=== PATIENT | female | born 1990 | race Two or more races ===

== ENCOUNTER 2021-12-12 12:00 | Inpatient (IN) | payer BC, OTHER ==
[2021-12-12] MEDS ORDERED: ELECTROLYTE-148 SOLN 1,000 ML IV SCH (12:20)
[2021-12-12] MEDS ORDERED: MAGNESIUM 4GM/H20 - 4 GM/100 ML IVPB IVPB ONE (12:30)
[2021-12-12] MEDS ORDERED: BETAMET ACET/BETAMET NA PH 30 MG/5 ML VIAL IM ONE (12:40)
[2021-12-12] MEDS ORDERED: MAGNESIUM SULFATE 20GM/500ML - 20 GM/500 ML INFUS.BAG IVPB ONE (12:59)
[2021-12-12] MEDS ORDERED: AMPICILLIN - 2 GM in SODIUM CHLORIDE 100 ML IVPB ONE (13:12)
[2021-12-12 13:15] LABS: BASO % 0.4 % (0-2.0); EOS % 0.8 % (0-4.5); HEMATOCRIT 37.6 % (32.4-45.2); HEMOGLOBIN 12.5 GM/dL (10.7-15.3); LYMPH % 18.5 % (8-40); MCH 27.6 pg (25.7-33.7); MCHC 33.2 g/dl (32.0-36.0); MEAN CELL VOLUME 83.3 fl (80-96); MEAN PLT VOLUME 8.8 fl (7.5-11.1); MONO % 8.9 % (3.8-10.2); NEUT % 71.4 % (42.8-82.8); PLATELET COUNT 244 10^3/uL (134-434); RBC 4.51 M/mm3 (3.60-5.2); RDW 14.3 % (11.6-15.6); WHITE BLOOD COUNT 12.5 K/mm3 (4.0-10.0)
[2021-12-12 13:21] LABS: INR 1.03 (0.83-1.09); PROTHROMBIN TIME (PATIENT) 11.8 SEC (9.7-13.0)
[2021-12-12 13:24] LABS: ACTIVATED PTT 28.2 SECONDS (25.2-36.5)
[2021-12-12 13:37] LABS: BLOOD UREA NITROGEN 4.1 mg/dL (7-18)
[2021-12-12 13:39] LABS: CREATININE 0.5 mg/dL (0.55-1.3)
[2021-12-12 14:31] VITALS: RESP 18; BMI 38.5
[2021-12-12 14:31] LABS: HIV INTERPRETATION NEGATIVE (NEGATIVE)
[2021-12-12 15:57] VITALS: BP 129/58; PULSE 107
[2021-12-12] MEDS ORDERED: AMPICILLIN - 1 GM in SODIUM CHLORIDE 100 ML IVPB SCH (17:12)
== END 2021-12-12 13:58 | disposition short-term general hospital (02) | DRG 833 ==
LOC: JLDR 12:00
PROVIDERS: ADMIT Obstetrics & Gynecology; ATTEND Obstetrics & Gynecology
DX: O60.03 Preterm labor without delivery, third trimester (principal); Z3A.29 29 weeks gestation of pregnancy; O30.033 Twin pregnancy, monochorionic/diamniotic, third trimester; O99.213 Obesity complicating pregnancy, third trimester; E66.9 Obesity, unspecified; O34.13 Maternal care for benign tumor of corpus uteri, third trimester; D25.1 Intramural leiomyoma of uterus; D25.2 Subserosal leiomyoma of uterus
CPT/HCPCS: 36415; 80048; 85025; 85610; 85730; 86780; 86850; 86900; 86901; 87081; 87389; 96372; C9803-CS; U0003; U0005